=== PATIENT | male | born 1995 | race Hispanic/Latino ===

== ENCOUNTER 2021-07-29 19:19 | Emergency (ER) | payer SELFPAY ==
[~2021-07-29] VITALS: Ht 160 cm; Wt 64.9 kg
[2021-07-29 19:26] VITALS: BP 127/82
[2021-07-29] MEDS ORDERED: CARBAMAZEPINE ER 200 MG TAB PO STA (20:52)
[2021-07-29 21:32] LABS: BASOPHILS % (AUTO) 0.4 % (0.0-5.0); EOSINOPHILS % (AUTO) 0.5 % (0.0-8.0); HEMATOCRIT 42.5 % (42-54); LYMPHOCYTES % (AUTO) 11.7 % (21.0-51.0); MEAN CORPUSCULAR HEMOGLOBIN 29.1 pg (27.0-33.0); MEAN CORPUSCULAR HGB CONC 34.8 g/dL (32.0-36.0); MEAN CORPUSCULAR VOLUME 83.7 fL (79-99); NEUTROPHILS % (AUTO) 83.1 % (40.0-77.0); PLATELET COUNT (AUTO) 230 K/uL (130-400); RED BLOOD CELL COUNT(AUTO) 5.08 MIL/uL (4.50-6.20); RED CELL DISTRIBUTION WIDTH 11.6 % (11.0-15.5); WHITE BLOOD COUNT (AUTO) 14.6 K/uL (4.8-10.8)
[2021-07-29 21:52] LABS: ALBUMIN 4.5 g/dL (3.5-5.0); BILIRUBIN,TOTAL 0.3 mg/dL (0.2-1.0); CARBAMAZEPINE (TEGRETOL) 6.7 mcg/mL (4.0-12.0); POTASSIUM 3.8 mmol/L (3.5-5.1); TOTAL PROTEIN, SERUM 8.5 g/dL (6.0-8.3)
[2021-07-29] MEDS ORDERED: CEFTRIAXONE 1G VIAL IM STA (21:55)
[2021-07-29] MEDS ORDERED: CEFTRIAXONE 1G VIAL ONE (21:59)
[2021-07-29] MEDS ORDERED: AMOX500C2 PO (22:25)
== END 2021-07-29 23:29 | disposition home or self-care (01) ==
LOC: EDH 19:19
DX: R56.9 Unspecified convulsions (principal); D72.829 Elevated white blood cell count, unspecified; G93.89 Other specified disorders of brain; Z20.822 Contact with and (suspected) exposure to COVID-19
CPT/HCPCS: 36415; 70450; 80053; 80156; 85025; 87635; 96372; 99284; C9803; J0696